=== PATIENT | female | born 2005 | race Caucasian/White ===

== ENCOUNTER 2025-04-09 15:58 | Emergency (ER) | payer SELFPAY ==
[2025-04-09 15:58] VITALS: BMI 24.4
[2025-04-09 16:07] VITALS: BP 120/80; PULSE 81; RESP 18; TEMP 36.8; O2SAT 97
--- NOTE | 2025-04-09 16:39 | XR_ITS ---
EXAMINATION: PA chest single view TECHNIQUE: Upright PA chest single view Date and time: April 09, 2025, 1641 hours, comparison July 05, 2021 INDICATIONS: Congestion this week, history pneumonia. FINDINGS: Stable mild pleural-parenchymal scarring left base Normal heart size No interval pneumonia or pulmonary edema IMPRESSION: No interval pneumonia or pulmonary edema
--- NOTE | 2025-04-09 16:39 | EKG_ITS ---
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
--- NOTE | 2025-04-09 17:55 | EDNOTE_ITS ---
<Statement entered by Becca Casey MD - 04/10/25 17:51> As co-signing physician, I was present and available for consult prn. I concur with the plan and care as documented by the midlevel provider. ED Chest Pain RME/HPI General Chief Complaint: Chest Pain Stated Complaint: CHEST PAIN X2 MONTHS, CONGESTION Time Seen by Provider: 04/09/25 16:02 Arrival date/time: 04/09/25 15:58 RME / HPI RME / HPI narrative: 19-year-old female with a past medical history of getting a mole removed presents to the ER complaining of bilateral lateral chest pain worse with palpation for the past 2 months. Denies any shortness of breath, nausea, vomiting, family history of early cardiac disease or sudden cardiac . Denies any recent travel, surgeries, immobilizations, history of leg swelling or blood clots. Pain is not exertional in nature and nonpleuritic as well. Social history: Denies drinking, smoking, drug use Related Data Previous Rx's ?Medication ?Instructions ?Recorded albuterol sulfate 90 mcg/actuation 2 puff inhalation Q ID #8.5 grams 07/06/21 aerosol inhaler psyllium husk 3 gram/5.4 gram oral 1 tbsp PO QDAY PRN constipation 07/06/21 powder #284 grams Allergies Allergy/AdvReac Type Severity Reaction Status Date / Time NKA* Allergy Uncoded 04/09/25 16:00 ED Exam Narrative Physical exam: Constitutional: Patient alert and oriented. Well appearing. No acute distress. Not toxic appearing. Head: Normocephalic, atraumatic. Eyes: Periorbital regions bilaterally normal to inspection. Conjunctiva clear bilaterally. Sclera anicteric bilaterally. Pupils equal, round, reactive to light bilaterally. Extraocular movements intact bilaterally. Mouth/Throat: Mucous membranes moist. No stridor or muffled voice. No trismus. Handling secretions without difficulty. Airway widely patent. Neck: Supple. Trachea midline. No JVD. No nuchal rigidity. Normal range of motion. Respiratory: Normal effort. No accessory muscle use or respiratory distress. Lungs clear to auscultation bilaterally without rhonchi, wheezes, or crackles. Positive tenderness to palpation to chest wall on anterior axillary line bilaterally. Cardiovascular: RRR. Normal S1/S2. No murmurs or rubs. Radial pulses intact b ilaterally. Abdomen: Soft. Non-distended. Non-tender throughout. No pulsatile mass. No guarding or rebound. Negative Fernández?s sign. Negative McBurney?s point tenderness. Negative Rovsing?s. Back: No midline tenderness or step-offs. No CVA tenderness to palpation bilaterally. Upper Extremities: No gross deformities. Lower Extremities: No gross deformities. No edema or calf tenderness. Neuro: Speech normal. No gross motor or sensory deficits to upper or lower extremities bilaterally. GCS 15. CN II?XII grossly intact. Skin: Warm, dry, normal color. 2 less than 1 cm size macules which are brown in color and nontender. Psych: Normal affect. Cooperative. Normal insight. Course Quality Measures none Orders Category Date Time Status EKG (ED ONLY) *Do not use* NOW Care 04/09/25 16:39 Completed EKG (ED Only) Stat Exams 04/09/25 16:39 Draft XR chest 1V Stat Exams 04/09/25 16:39 Completed Ibuprofen Susp [Motrin Susp] Med 04/09/25 17:55 Once 400 mg PO X1 ONE Reevaluation(s) Reevaluation #1: At the time of reassessment prior to discharge, the patient remains alert and oriented ?3 with GCS 15. Vitals are normal, pain is controlled, and the patient is tolerating oral intake without nausea or vomiting. The patient is agreeable to discharge and verbalizes understanding of the diagnosis, studies, treatment plan, medications (including side effects/precautions), and strict ER return precautions as discussed in the ED. All concerns were addressed, and the patient is comfortable with the plan. Time: 18:01 Vital Signs Vital signs: Vital Signs Temperature 98.3 F 04/09/25 16:07 Pulse Rate 81 04/09/25 16:07 Respiratory Rate 18 04/09/25 16:07 Blood Pressure 120/80 04/09/25 16:07 Pulse Oximetry (%) 97 04/09/25 16:07 Oxygen Delivery Method Room Air 04/09/25 16:07 PROCEDURES: EKG Interpretation #1: Date of EK04/09/25 Rate: 72 Interpretation: Interpreted by me EKG Impression: Normal sinus rhythm Additional EKG comment: MT interval is 114 which is mildly shortened, occasional ectopic beats noted, no ST elevation, QTc 450 Chest Pain MDM Narrative MDM Narrative:: MDM The patient presents with chest pain. Differential diagnosis includes musculoskeletal chest pain versus costochondritis Less likely etiologies include: PE: Wells low risk, PERC negative. ACS: HEART Score low risk, suggesting low probability of major adverse cardiac event in the next 6 weeks. Aortic Dissection: Unlikely given palpable pulses, warm extremities bilaterally, and no radiation of pain. Tamponade: Unlikely given absence of hypotension, muffled heart sounds, JVD, friction rub, narrow pulse pressure ?30, low-voltage EKG, or enlarged cardiac silhouette. Endocarditis: Unlikely as no Hicks criteria present (Rain spots, splinter hemorrhages, Osler nodes). CHF: Unlikely given no JVD, peripheral edema, or orthopnea. The patient is clinically well-appearing and stable. Evaluation today does not suggest cardiac ischemia, pulmonary embolism, aortic dissection, or other life- threatening etiology. These diagnoses were considered and excluded clinically and with appropriate studies. Nonetheless, it is understood by both patient and provider that no evaluation can entirely exclude such conditions. Admission was considered but is not indicated based on today?s evaluation and low-risk stratification. The patient is strongly encouraged to follow up with their PMD and/or cartography technician within the next 1-2 days. Strict ER return precautions advised for any continued, worsening, or new symptoms or any concerns at all. Patient data External records reviewed:: [facility] previous records Clinical information provided by:: patient and family Social determinants that could affect healthcare access:: none Patient has the following chronic illnesses:: As noted How is presenting disease/condition affected by chronic disease/condition?: uneffected by Evaluation data The following diagnostics were reviewed and interpreted by me:: lab results, radiology exam(s), EKG tracing(s) and other (specify) Lab and/or radiology exams considered but not ordered:: Additional Labs and radiology considered, but not ordered as they were not clinically indicated at this time. Interpretation Summary: EKG without acute ischemia or arrhythmia Chest x-ray without acute cardiopulmonary abnormality Medications / Prescriptions Medications or Prescriptions considered but not ordered:: I ordered medications based on the patient?s clinical needs and assessment, as documented in the chart. For medications not prescribed, they were not indicated for the patient's current condition, and I determined they were unnecessary at this time to avoid potential risks or complications. Medication administrations:: Medication Administration History Ibuprofen (Ibuprofen Susp 100 Mg/5 Ml Udc) 400 mg PO X1 ONE Stop: 04/09/25 17:56 As noted Consultations Consultation(s) initiated? (list below): No Diagnosis Chest Pain Differential Diagnosis: costochondritis, chest pain and other Most likely diagnosis given after review of the tests above:: Costochondritis however this is chest pain of unclear etiology Admission Indicated Admission indicated?: not indicated Admission Request Was there a request for admission?: No Admission Attestation Admission request attestation: Escalation of care including admission/observation considered but I decided to discharge because based on the overall clinical presentation, and after consideration of the patient's course in the emergency department and plan for outpatient management, I believe that neither further observation nor inpatient care is required at this time. Disposition Plan Disposition Plan: Discharge Discharge Attestation Discharge Attestation: The patient and all family members were given an opportunity to ask questions and understood the discharge instructions. Discharge instructions specifically effects, indications for sooner follow up or return to the emergency department, and the expected course of current diagnosis. Patient condition: Stable Discharge Plan Plan Patient Disposition: HOME (Self Care) Patient condition on transfer: Stable Prescriptions/Referrals Prescriptions/Med Rec: No Action albuterol sulfate 90 mcg/actuation HFA aerosol inhaler 2 puff inhalation QID Qty: 8.5 0RF psyllium husk 3 gram/5.4 gram powder 1 tbsp PO QDAY PRN (Reason: constipation ) Qty: 284 0RF Rx Instructions: mix into at least 8 oz of water or juice before administering Referrals: No Primary/Family,Physician [Primary Care Provider] - In 1 week Problem List Clinical Impression: Chest pain Patient/Caregiver Discharge Instructions Education Materials: ED Chest Pain, Uncertain Cause Additional Instructions: Follow up with your primary medical doctor within 48 hours. Return to the Emergency Room immediately for any new, worsening, continuing symptoms or any concerns at all. Return to the Emergency Room within 48 hours if you are unable to follow up with your primary medical doctor within 48 hours. Your EKG did note some small irregularities should follow-up with your primary doctor about this this week. Print Language: Kittitian Stand Alone Forms: Carole Award Info., Patient Portal Info Letter PA/COBY Supervising Physician PA/COBY Supervising Physician: Dr. CASEY
== END 2025-04-09 18:40 | disposition home or self-care (01) ==
PROVIDERS: Emergency Provider Emergency Medicine
DX: R07.9 Chest pain, unspecified (principal); R09.89 Other specified symptoms and signs involving the circulatory and respiratory systems
CPT/HCPCS: 71045; 93005; 99282